=== PATIENT | female | born 1960 | race Caucasian/White ===

== ENCOUNTER → 2017-05-15 08:59 | Outpatient (CLI) | payer BC, SELFPAY ==
[2017-05-02 13:18] VITALS: BP 116/6; BMI 49.7
[2017-05-15 09:00] VITALS: PULSE 117; PULSE 120; PULSE 123; PULSE 124; PULSE 132; PULSE 133; PULSE 134; O2SAT 94; O2SAT 95; O2SAT 96; O2SAT 97; O2SAT 98
--- NOTE | 2017-05-15 14:41 | WT_ITS ---
PSN 6 Minute Walk Test - 6 Minute Walk Test 6 Minute Walk Test: 6 Minute Walk Test PSN:6-Minute Walk Test Start: 05/15/17 09: 37 Freq: Status: Active Protocol: [id number] Document 05/15/17 09:00 EW (Rec: 05/15/17 09:51 EW [id number]) 6 Minute Walk Test Date Performed 05/15/17 Time Performed 09:00 Height 5 ft 4 in Weight: 136.985 kg Weight in Pounds 302.[address]: Mark Nunn Assistive device used: None Pre-test Oxygen Delivery Method Room Air Pulse Ox (%) 96 Pulse Rate (60-100 beats/min) 117 H Dyspnea Boone Scale (0-10) 2 Exertion Boone Scale (6-20) 7 1st minute Oxygen Delivery Method Room Air Pulse Ox (%) 98 Pulse Rate (60-100 beats/min) 117 H 2nd minute Oxygen Delivery Method Room Air Pulse Ox (%) 95 Pulse Rate (60-100 beats/min) 124 H Reported Symptoms Increased Work of Breathing 3rd minute Oxygen Delivery Method Room Air Pulse Ox (%) 97 Pulse Rate (60-100 beats/min) 133 H Reported Symptoms Increased Work of Breathing 4th minute Oxygen Delivery Method Room Air Pulse Ox (%) 96 Pulse Rate (60-100 beats/min) 123 H Reported Symptoms Increased Work of Breathing 5th minute Oxygen Delivery Method Room Air Pulse Ox (%) 94 Pulse Rate (60-100 beats/min) 132 H Reported Symptoms Increased Work of Breathing 6th minute Oxygen Delivery Method Room Air Pulse Ox (%) 96 Pulse Rate (60-100 beats/min) 134 H Reported Symptoms Increased Work of Breathing Post-test Oxygen Delivery Method Room Air Pulse Ox (%) 98 Pulse Rate (60-100 beats/min) 120 H Dyspnea Boone Scale (0-10) 5 Exertion Boone Scale (6-20) 12 Full Laps Walked 17 Partial Lap, Number of Tiles Walked 26 Total Distance Walked (ft) 1029 - Interpretation Interpretation: The patient was able to ambulate 1029 feet over the course of 6 minutes on room air with the assistance of 2 weeks. Patient experienced no significant desaturation, but did have tachycardia as high as 133 bpm indicating a cardiovascular versus deconditioning limitation to exercise tolerance. - Recommendations Recommendations: No supplemental oxygen is indicated at this time. Patient may benefit from cardiac evaluation versus initiation of an exercise program.
== END ==
PROVIDERS: Family Provider Nurse Practitioner; PCP Nurse Practitioner; Visit Provider Internal Medicine Critical Care Medicine
DX: R06.02 Shortness of breath (principal)
CPT/HCPCS: 94618

== ENCOUNTER → 2017-05-16 06:59 | Outpatient (CLI) | payer BC, SELFPAY ==
[2017-05-02 13:18] VITALS: BP 116/6; BMI 49.7
--- NOTE | 2017-05-16 15:50 | PFTCOMP ---
COMPLETE PULMONARY FUNCTION TEST INTERPRETATION Brief HPI: Patient is a 57 year old female, currently under the care Dr. Nunn, who presents to [facility] for complete pulmonary function tests secondary to diagnosis of dyspnea. Respiratory therapist reports good effort and reproducible results. Interpretation: Forced expiration spirometry shows no large airways obstructive ventilatory defect with an FEV1 of 67 % predicted. There is no significant bronchodilator response by ATS criteria. Spirograms are of good quality and plateau normally. The respiratory flow volume loop shows a normal pattern. Lung volumes by body plethysmography show a decreased total lung capacity at 3.18 L, 63 % predicted. All other lung volumes are reduced symmetrically. Diffusion capacity by carbon monoxide is decreased at 51 % predicted. The airway resistance is normal. No previous pulmonary function tests were available for review. Impression: Irreversible moderate restrictive ventilatory defect with a symmetric reduction diffusing capacity consistent with possible interstitial lung disease.
== END ==
PROVIDERS: Family Provider Nurse Practitioner; PCP Nurse Practitioner; Visit Provider Internal Medicine Critical Care Medicine
DX: R06.02 Shortness of breath (principal)
CPT/HCPCS: 94060; 94726; 94729

== ENCOUNTER → 2017-09-23 20:06 | Outpatient (CLI) | payer BC, SELFPAY | PROVIDERS: Family Provider Nurse Practitioner; PCP Nurse Practitioner; Visit Provider Nurse Practitioner Acute Care | DX: G47.19 Other hypersomnia (principal) | CPT/HCPCS: 95810 ==

== ENCOUNTER → 2017-12-31 23:21 | Outpatient (CLI) | payer BC, SELFPAY | PROVIDERS: Family Provider Nurse Practitioner; PCP Nurse Practitioner; Visit Provider Internal Medicine Critical Care Medicine | DX: G47.33 Obstructive sleep apnea (adult) (pediatric) (principal) | CPT/HCPCS: 95811 ==

== ENCOUNTER → 2018-04-14 23:50 | Outpatient (CLI) | payer BC, SELFPAY ==
[2018-04-14 16:48] VITALS: BMI 53.1
[2018-04-15 00:43] LABS: Absolute Lymphocyte Count 2.92 X10^3/ul (0.83-4.51); Absolute Neutrophil Count 9.9 X10^3/uL (2.0-7.7); Basophil# 0.05 X10^3/uL; Basophil% 0.4 % (0-1); Eosinophils% 2.1 % (0-5); Hematocrit 39.9 % (37-47); Hemoglobin 12.6 g/dl (12.0-15.0); Lymphocyte # 2.92 X10^3/ul (4.0); Lymphocyte % 20.7 % (19-41); Mean Corp Hgb Conc 31.6 g/gl (32-36); Mean Corpuscular Hgb 28.6 pg (27.0-32.0); Mean Corpuscular Volume 90.5 fL (81-99); Mean Platelet Vol. 11.1 fl (6.2-12.0); Monocyte# 0.87 X10^3/uL; Monocyte% 6.2 % (0-10); Neutrophil # 9.93 X10^3/uL (2.7-7.7); Neutrophil % 70.4 % (47-70); Platelet Count 330 K/mm3 (150-450); RBC Distribution Width CV 13.8 % (11.6-14.6); RBC Distribution Width SD 44.6 fl (35.1-43.9); Red Blood Count 4.41 M/mm3 (4.2-5.4); White Blood Count 14.1 K/mm3 (4.4-11.0)
[2018-04-15 00:44] LABS: POSITIVE COUNT NO; POSITIVE DIFFERENTIAL NO; POSITIVE MORPHOLOGY NO
[2018-04-15 00:52] LABS: AST(SGOT) 18 U/L (15-37); Alanine Aminotransfer ALT/SGPT 34 U/L (13-56); Albumin, Serum 3.6 g/dL (3.2-5.0); Alkaline Phosphatase 56 U/L (45-117); Anion Gap 9 (5-15); BUN 11 mg/dL (7-18); BUN/Creat Ratio 13.1 RATIO (10-20); Calcium,Total 8.7 mg/dL (8.5-10.1); Chloride 105 mmol/L (98-107); Cholesterol 164 mg/dL (200); Creatinine, Serum 0.84 mg/dL (0.55-1.02); EST Glomerular Filtration Rate 74 mL/min (>60); Est Glom Filt Rate - Afr Amer 90 mL/min (>60); Globulin 3.6 g/dL (2.2-4.2); Glucose 194 mg/dL (74-106); High Density Lipoprotein 35 mg/dL; Potassium 4.1 mmol/L (3.5-5.1); Protein, Total 7.2 g/dL (6.4-8.2); Sodium Level 139 mmol/L (136-145); Triglycerides 132 mg/dL; Very Low Density Lipoprotein 26 mg/dL (5-40)
--- OUTSIDE RECORDS SUMMARY | 2018-06-17 05:50 | XMS RPT_ITS ---
:1960 Author Organization [place] Support Name Relationship Address Phone [facility] Unavailable [address] + [place] [address] KAUF, SRIDHAR Unavailable [id number] + [place] [address] [facility] Unavailable [address] + [place] [address] KAUF, SRIDHAR Unavailable [id number] + [place] [address] [facility] Unavailable [address] + [place] [address] KAUF, SRIDHAR Unavailable [address] + [place] [address] [facility] Unavailable [address] + [place] [address] KAUF, SRIDHAR Unavailable [id number] + [place] [address] [facility] Unavailable [address] + [place] [address] KAUF, SRIDHAR Unavailable [address] + [place] [address] [facility] Unavailable [address] + [place] [address] KAUF, SRIDHAR Unavailable [address] + [place] [address] [facility] Unavailable [address] + [place] [address] KAUF, SRIDHAR Unavailable [address] + [place] [address] [facility] Unavailable [address] + [place] [address] KAUF, SRIDHAR Unavailable [address] + [place] [address] [facility] Unavailable / + [place] / KAUF, SRIDHAR Unavailable [address] + [place] [address] [facility] Unavailable [address] + [place] [address] KAUF, SRIDHAR Unavailable [address] + [place] [address] [facility] Unavailable / + [facility] / KAUF, SRIDHAR Unavailable [address] + [place] [address] Kauf, Sridhar Unavailable Unavailable + Kauf, Sridhar Unavailable Unavailable + Care Team Providers Name Role Phone JOHNSON SOARES Attending Unavailable Smith, Brittney Attending Unavailable PROVIDER, UNKNOWN Referring Unavailable Smith, Brittney Primary Care Unavailable Smith, Brittney Attending Unavailable PROVIDER, UNKNOWN Referring Unavailable Smith, Brittney Primary Care Unavailable Smith, Brittney CORE CUTTER-C Attending Unavailable Smith, Brittney CORE CUTTER-C Primary Care Unavailable Mark Nunn D.O. Attending Unavailable Smith, Brittney CORE CUTTER-C Referring Unavailable Mark Nunn D.O. Attending Unavailable Smith, Brittney CORE CUTTER-C Primary Care Unavailable Mark Nunn D.O. Attending Unavailable Mark Nnun D.O. Referring Unavailable Smith, Brittney CORE CUTTER-C Primary Care Unavailable Princess Armstrong Attending Unavailable Smith, Brittney CORE CUTTER-C Referring Unavailable Franklin Boudreaux Attending Unavailable Robin Knox.O. Referring Unavailable Franklin Boudreaux Attending Unavailable Robin Knox.Yazmin. Referring Unavailable Princess Armstrong Attending Unavailable Smith, Brittney CORE CUTTER-C Referring Unavailable Smith, Brittney CORE CUTTER-C Primary Care Unavailable Princess Armstrong Attending Unavailable Smith, Brittney CORE CUTTER-C Primary Care Unavailable Mark Nunn D.O. Attending Unavailable Smith, Brittney CORE CUTTER-C Referring Unavailable Mark Nunn D.O. Attending Unavailable Smith, Brittney CORE CUTTER-C Primary Care Unavailable PROBLEMS PROBLEMS DATE TYPE CONDITION / CODE ATTENDING STATUS SOURCE 01/07/2018 Unknown G47.33 - Mark Nunn, Active Cheryl Obstructive sleep [facility] apnea (adult) Hospital (pediatric) / Repository G47.33(ICD-10) 09/23/2017 Unknown G47.19 - Other Armstrong, Active [place] hypersomnia / [facility] G47.19(ICD-10) Hospital Repository 05/15/2017 Unknown R06.02 - Shortness Mark Nunn, Active Cheryl of breath / [facility] R06.02(ICD-10) Hospital Repository 05/01/2017 Admitting Solitary pulmonary Obed, Active [facility] Diagnosis nodule / Brittney System R91.1(ICD-10) Repository 05/01/2017 Admitting Interstitial Obed, Active [facility] Diagnosis pulmonary disease, Brittney System unspecified / Repository J84.9(ICD-10) 05/01/2017 Admitting Dyspnea, Obed, Active [facility] Diagnosis unspecified / Brittney System R06.00(ICD-10) Repository 04/21/2017 Active Strain of muscle, FANY, Active [place] fascia and tendon [facility] Other of lower back, [place] initial encounter Repository / S39.012A(ICD-10) PROCEDURES PROCEDURES No Procedure Records FoundRESULTS RESULTS CBC W/DIFF, AUTOMATED Collected: 04/14/2018 Status: F Source: [facility] 5:15 PM [facility] REPOSITORY TYPE CODE TESTS RESULT OUT OF RANGE REFERENCE UNITS LAB L100.1000 4.4-11.0 K/mm3 High WBC 14.1 LAB L100.1200 4.2-5.4 M/mm3 Normal RBC 4.41 LAB L100.1300 12.0-15.0 g/dl Normal HGB 12.6 LAB L100.1400 37-47 % Normal HCT 39.9 LAB L100.1500 81-99 fL Normal MCV 90.5 LAB L100.1600 27.0-32.0 pg Normal MCH 28.6 LAB L100.1700 32-36 g/gl Low MCHC 31.6 LAB L100.1810 11.6-14.6 % Normal RDW CV 13.8 LAB L100.1820 35.1-43.9 fl High RDW SD 44.6 LAB L100.1900 150-450 K/mm3 Normal PLT 330 LAB L100.2000 6.2-12.0 fl Normal MPV 11.1 LAB L100.2100 47-70 % High NEUT% 70.4 LAB L100.2200 19-41 % Normal LY% 20.7 LAB L100.2300 0-10 % Normal MONO% 6.2 LAB L100.2400 0-5 % Normal EO% 2.1 LAB L100.2500 0-1 % Normal BASO% 0.4 LAB L100.2550 0.0-0.9 % Normal IM GRAN % 0.200 Result Comment: IG% - Immature Granulocytes (promyelocytes, myelocytes and metamyelocytes) > 1% indicates that a LEFT SHIFT is Present. LAB L100.2620 2.0-7.7 X10 3/uL High Absolute Neut 9.9 LAB L100.2720 0.83-4.51 X10 3/ul Normal Absolute Lymph 2.92 Performed By: #### L100.0100 #### [facility] [address] [place], [place], [address] COMPREHENSIVE METABOLIC Collected: 04/14/2018 Status: F Source: [facility] 5:15 PM [facility] REPOSITORY TYPE CODE TESTS RESULT OUT OF RANGE REFERENCE UNITS LAB L501.0100 74-106 mg/dL High GLU 194 Result Comment: Fasting Glucose result greater than or equal to 126 mg/dL suggests DIABETES MELLITUS per A.D.A. criteria. Please note revised GLUCOSE reference range effective 2017. LAB L501.1000 7-18 mg/dL Normal BUN 11 LAB L501.1100 0.55-1.02 mg/dL Normal CREAT,SERUM 0.84 Result Comment: The validity of the calculated GFR AND GFRAA in patients over 70 years has not been determined. Clinical correlation is essential. LAB L501.1110 >60 mL/min Normal EST GFR 74 Result Comment: Non- GFR Calc LAB L501.1115 >60 mL/min Normal EST GFR - AA 90 Result Comment: GFR Calc LAB L501.1300 10-20 RATIO Normal BUN/CRE 13.1 LAB L501.1500 6.4-8.2 g/dL T Normal PROT 7.2 LAB L501.1800 3.2-5.0 g/dL Normal ALB 3.6 LAB L501.1950 2.2-4.2 g/dL Normal GLOB 3.6 LAB L501.2000 0.9-2.4 RATIO Normal A/G 1.0 LAB L501.2200 8.5-10.1 mg/dL CA Normal 8.7 LAB L501.4100 15-37 U/L Normal AST 18 LAB L501.4305 45-117 U/L Normal ALK P 56 LAB L501.4405 13-56 U/L Normal ALT 34 LAB L501.4600 0.20-1.00 mg/dL T Normal BILI 0.30 LAB L501.5300 136-145 mmol/L NA Normal 139 LAB L501.5600 3.5-5.1 mmol/L K Normal 4.1 LAB L501.5900 98-107 mmol/L CL Normal 105 LAB L501.6100 21.0-32.0 mmol/L Normal CO2 25.0 LAB L501.6200 5-15 Normal GAP 9 Performed By: #### L500.4050, L500.4100, L501.9520 #### [facility] [address] [place], [address] LIPID PROFILE Collected: 04/14/2018 Status: F Source: [place] 5:15 PM [facility] REPOSITORY TYPE CODE TESTS RESULT OUT OF RANGE REFERENCE UNITS LAB L501.4900 200 mg/dL Normal CHOL 164 Result Comment: <200 mg/dL Desirable 200-240 mg/dL Borderline >240 mg/dL High Risk LAB L501.5000 mg/dL Normal TRIG 132 Result Comment: The drugs N-Acetylcysteine and Metamizole may falsely depress this assay. Serum Triglycerides Reference Interval Normal <150 mg/dL Borderline high 150 - 199 mg/dL High 200 - 499 mg/dL Very High > or = 500 mg/dL LAB L501.6400 mg/dL Low HDL 35 Result Comment: The drugs N-Acetylcysteine and Metamizole may falsely depress this assay. Reference Range HDL <40 mg/dL Low HDL Cholesterol HDL >or= 60 mg/dL High HDL Cholesterol LAB L501.6500 0-130 mg/dL Normal LDL 103 LAB L501.6600 5-40 mg/dL Normal VLDL 26 Performed By: #### L500.4050, L500.4100, L501.9520 #### [facility] [address] [place], [address] THYROID STIM HORMONE Collected: 04/14/2018 Status: F Source: [facility] ([facility]) 5:15 PM [facility] REPOSITORY TYPE CODE TESTS RESULT OUT OF RANGE REFERENCE UNITS LAB L501.9520 0.358-3.74 uIU/mL Normal TSH 0.90 Performed By: #### L500.4050, L500.4100, L501.9520 #### Cheryl [facility] [address] [place], [address] OFFICE VISIT Observed: 04/14/2018 Status: F Source: [place] 5:12 PM [facility] REPOSITORY [facility] [address] [place] [address] OFFICE VISIT Date of Service: 04/14/18 MR#: [id number] Acct: [id number] Name: CHACHA BAIRD Rep #: [id number] : 1960 Provider: RUPINDER Smith Age/Sex: 58/F Location: [facility] Status: Signed Intake Vital Signs04/14/18 Height 5 ft 4 in 04/14/18 Weight: 310 lb 04/14/18 Body Mass Index (BMI) 53.1 Intake Visit Reasons: MED REFILLS FOR HTN AND DM TYPE 2 AND LABS Allergies ciprofloxacin Allergy (Severe, Verified 11/27/17 08:22) rash/itching codeine Allergy (Severe, Verified 11/27/17 08:22) rash/itching oscar Allergy (Severe, Uncoded 11/27/17 08:22) Rash Medications albuterol sulfate HFA 90 mcg/actuation aerosol inhaler 2 puff INHALATION Q4H PRN g 05/02/17 [History Confirmed 11/27/17] aspirin 81 mg tablet,delayed release 81 mg PO QDAY 05/02/17 [History Confirmed 11/27/17] ferrous sulfate 325 mg (65 mg iron) tablet 325 mg PO BID tab 05/02/17 [History Confirmed 11/27/17] multivitamin,ar-okiu-wwpjgzjw tablet 1 tab PO QDAY 05/02/17 [History Confirmed 11/27/17] levothyroxine 100 mcg tablet 150 mcg PO QDAY tab 06/03/17 [History Confirmed 11/27/17] fluticasone furoate 100 mcg/actuation blister powder for inhalation 1 inh INHALATION Q24H #3 device 06/18/17 [Rx Confirmed 11/27/17] nystatin 100,000 unit/mL oral suspension 5 ml MUCOUS MEMBRANE TID #250 ml 07/11/17 [Rx Confirmed 11/27/17] fluticasone 50 mcg/actuation nasal spray,suspension 2 spray INTRANASAL QDAY #3 device 03/13/18 [Rx] montelukast 10 mg tablet 10 mg PO QPM #90 tab 03/13/18 [Rx] lisinopril 10 mg tablet 10 mg PO QDAY #90 tab 04/14/18 [Rx Confirmed 04/14/18] metformin 1,000 mg tablet 1,000 mg PO BID #180 tab 04/14/18 [Rx Confirmed 04/14/18] metoprolol succinate ER 50 mg tablet,extended release 24 hr 50 mg PO ONCE #90 tab 04/14/18 [Rx Confirmed 04/14/18] pioglitazone 30 mg tablet 30 mg PO QDAY #90 tab 04/14/18 [Rx Confirmed 04/14/18] sitagliptin 100 mg tablet 100 mg PO QDAY #90 tab 04/14/18 [Rx Confirmed 04/14/18] PFSH Medical History Morbid obesity (Chronic) Interstitial lung disease (Chronic) Cough (Chronic) Hypoxemia (Chronic) Shortness of breath (Chronic) Tachycardia (Chronic) Psoriasis (Chronic) Hypertension (Chronic) Hypothyroidism (Chronic) Anemia (Chronic) Surgical History History of repair of rotator cuff (Resolved) History of bilateral knee arthroplasty (Resolved) Social History Smoking Status: Never smoker second hand exposure: No alcohol intake: current substance use type: does not use HPI HPI (General) HPI HPI: CHACHA BAIRD, is a 58 F who presents to the office today for medication refills. No concerns feeling well ROS Const Constitutional: No anorexia, body ache, chills, excessive sweating, fatigue, fever(s), frequent falls, headache(s), decreased energy, malaise, night sweats, snoring, weakness, weight change, sleep problems, abnormal sleep pattern, change in appetite or other Eyes Eyes: No blurry vision, change in vision, double vision, discharge, dry eyes, bulging eyes, floaters, visual disturbances, eye pain, light sensitivity, spots in vision, tunnel vision or other ENT ENT: No headache(s), abnormal hearing, ear pain, ear discharge, ear pressure, hearing loss, tinnitus, dizziness/vertigo, balance problems, nosebleed/epistaxis, nasal congestion, nasal obstruction, nose pain, sinus pressure, sinus pain, nasal discharge, post nasal drip, facial pain, dental pain, dry mouth, difficulty swallowing, bad breath, hoarseness, lip swelling, mouth lesions, mouth pain, neck pain, sore throat, tongue swelling, throat swelling or other Resp Respiratory: No snoring, cough, change in phlegm color, chest congestion, excessive phlegm production, hemoptysis, pain on inspiration, shortness of breath, pain with cough, stridor, wheezing or other Cardio Cardiology: No excessive sweating, chest pain at rest, chest pain with exertion, leg pain with exertion, shortness of breath, dyspnea on exertion, generalized swelling, irregular heart rhythm, lightheadedness, orthopnea, radiating jaw, neck or arm pain, fast heart rate, slow heart rate, palpitations or other Gastro GI: No other, No Difficulty Swallowing, No abdominal pain, No belching, No bloating, No change in bowel habits, No change in stool character, No coffee ground emesis, No constipation, No cramping, No diarrhea, No heartburn, No feeling full early, No excessive flatus, No incontinent of stools, No Vomiting blood/hematemesis, No Blood in stool, No loose stools, No Black,tarry stools, No nausea/dyspepsia, No pain with swallowing, No vomiting, No hemorrhoids, No rectal pain Genitourinary: No urinary frequency, difficulty urinating, burning urination, painful urination, urinary urgency or blood in urine Musc Musculoskeletal: No neck pain, abnormal walking, joint pain, back pain, deformity, joint swelling, limited range of motion, loss of height, muscle cramps, muscle weakness, decreased muscle mass, body aches, numbness, radiating pain into limb, stiffness, tingling or other Skin Skin: No acne, hair loss, change in hair, nail changes, boil, change in skin color, dry skin, redness, excessive hair growth, yellowing of the skin, lesions, itching, rash, skin pain, skin ulcer, sores, skin swelling, wounds or other Breast Breast: No other Neuro Neurology: No frequent falls, headache(s), weakness, visual disturbances, abnormal hearing, abnormal walking, numbness, tingling, abnormal movements, abnormal speech, behavioral changes, confusion, unsteady gait/balance, dizziness, lack of coordination, loss of vision, memory loss, restless legs, fainting, tremor(s) or other Psych Psychiatric: No abnormal sleep pattern, No change in appetite, No behavioral changes, No confusion, No memory loss, No lack of enjoyment, No anxiety, No depression, No difficulty concentrating, No hopelessness, No irritability, No mood swings, No panic attacks, No paranoia, No Thoughts of harming yourself/Others, No hallucinations, No other Endo Endo: No excessive sweating, No fatigue, No other Aller/Imm Allergy/Immunologic: No lip swelling, tongue swelling, throat swelling, wheezing or itchy eyes Exam Const Constitutional: Yes cooperative, Yes healthy appearing Nutritional Appearance: Yes obese and overweight Orientation: Yes alert, awake and oriented x3 Chest Chest palpation AND inspection: Yes normal inspection of the chest Resp Effort AND Inspection: No stridor Auscultation: Yes clear to auscultation bilaterally Cardio Palpitation: Yes normal PMI Rate: Yes regular rate Rhythm: Yes regular rhythm GI Inspection: Yes normal to inspection Auscultation: Yes normal bowel sounds Rectal Exam: No hemorrhoids Musc Cervical Spine: Yes cervical ROM normal Thoracic/Lumbar Spine: Yes thoracic and lumbar spine normal to inspection Skin General: no rashes or lesions noted Lesions: Yes no lesions Extrem General: Yes normal to inspection Neuro General: Yes alert and oriented x3 Motor: No weakness Psych Appearance: Positive grossly normal Mood: Positive congruent mood Affect: Positive normal affect Results POC A1C POC A1C 8.9 % Last Edit by NOEMY Dover on 04/14/18 17:01 Assessment AND Plan Problems 1. Morbid obesity E66.01 2. Essential hypertension I10 3. Acquired hypothyroidism E03.9 4. Type 2 diabetes mellitus without complication, without long-term current use of insulin E11.9 Patient Instructions Take the medications as prescribed Will call with the results of thelabs drawn today Watch the starches and carbs Orders Orders: Medications New: Coding Level of Care Code Off vis,est,level 3 Diagnoses Morbid obesity E66.01 Essential hypertension I10 Hypertension type: essential hypertension Acquired hypothyroidism E03.9 Hypothyroidism type: acquired Type 2 diabetes mellitus without complication, without long- term current use of insulin E11.9 Diabetes mellitus manager of school insulin use: without manager of school use Diabetes mellitus complication status: without complication 04/14/18 1712 <Electronically signed by Brittney SALGUERO> Date Brittney SALGUERO CC: PULMONARY VISIT REPORT Observed: 11/27/2017 Status: F Source: [place] 9:03 AM [facility] REPOSITORY [facility] [address] [place] [address] OFFICE VISIT Date of Service: 11/27/17 MR#: [id number] Acct: [id number] Name: CHACHA BAIRD Robin Rep #: [id number] : 1960 Provider: Mark Nunn D.O. Age/Sex: 57/F Location[facility] Status: Signed Assessment AND Plan 1. Asthma J45.909 Plan The patient's asthma had previously been under good control with the use of Arnuity and as needed albuterol. In the recent weeks, her seasonal allergic rhinitis symptoms have returned and she is now utilizing her rescue inhaler with increasing frequency. Therefore, I am going to start the patient on Flonase and Singulair in hopes of helping to alleviate her current allergic rhinitis symptoms. If this does not help alleviate her reliance on her short acting beta agonist, may need to consider an escalation in her maintenance inhaler regimen to a combination ICS/LABA. Patient will return to our office in 2-4 weeks for reassessment of her underlying symptoms. 2. Morbid obesity E66.01 Plan Weight loss through dietary modification and a graded exercise regimen is strongly encouraged. Plan Detail Other Medications New: fluticasone 50 mcg/actuation (Flonase Allergy Relief) adminis2 sprays Intranasal QDAY ter into each nostril Follow Up 2-4 Weeks with [facility] HPI HPI Comments Details: The patient is a 57-year-old female who presents to the clinic today for a routine scheduled follow-up office visit. If you recall, the patient initially presented to me for evaluation of bronchitis. She is a lifelong non-smoker, but did report secondhand smoke exposure. She has lived in [place] her entire life. She is currently employed working in an office setting. She does report the presence of seasonal allergies, worse in the spring and fall months. She does not have any pets in her home environment. Pulmonary function testing completed in April 2017 revealed evidence of an irreversible moderate restrictive ventilatory defect with a symmetric reduction in diffusing capacity. A 6 minute walk test also completed at that time revealed no significant exertional hypoxemia. It does appear that the patient had a plain film chest x-ray completed on April 17, which reportedly revealed coarse interstitial markings throughout the lungs. Therefore, a dedicated chest CT was obtained which revealed clear pulmonary parenchyma without consolidation or effusion. There was incidental note made of a 4 mm pulmonary nodule in the right middle lobe, which does not require additional follow-up imaging given her low risk status. The patient is currently being treated for underlying asthma with Arnuity as needed albuterol. Today, the patient reports that over the last several weeks her seasonal allergies have become an issue. She is now utilizing her Pro Air 2-3 times per day. She reports the presence of nasal congestion, postnasal drip, itchy/watery eyes and sneezing. She denies fevers, chills or night sweats. She has reported intermittent chest tightness and wheezing, which responds favorably to the use of her short acting beta agonist. She is not currently utilizing any eyqi-gpk-azyrwbl medications for her seasonal allergic rhinitis symptoms. Her weight has been stable. 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 Accompanied by: Self Is patient in pain?: No Allergies ciprofloxacin Allergy (Severe, Verified 11/27/17 08:22) rash/itching codeine Allergy (Severe, Verified 11/27/17 08:22) rash/itching oscar Allergy (Severe, Uncoded 11/27/17 08:22) Rash Medications albuterol sulfate HFA 90 mcg/actuation aerosol inhaler 2 puff INHALATION Q4H PRN g 05/02/17 [History Confirmed 11/27/17] aspirin 81 mg tablet,delayed release 81 mg PO QDAY 05/02/17 [History Confirmed 11/27/17] ferrous sulfate 325 mg (65 mg iron) tablet 325 mg PO BID tab 05/02/17 [History Confirmed 11/27/17] lisinopril 10 mg tablet 10 mg PO QDAY 05/02/17 [History Confirmed 11/27/17] metformin 1,000 mg tablet 1,000 mg PO BID 05/02/17 [History Confirmed 11/27/17] metoprolol succinate ER 50 mg tablet,extended release 24 hr 50 mg PO ONCE tab 05/02/17 [History Confirmed 11/27/17] multivitamin,ml-mdpl-frzfbqhk tablet 1 tab PO QDAY 05/02/17 [History Confirmed 11/27/17] pioglitazone 30 mg tablet 30 mg PO QDAY 05/02/17 [History Confirmed 11/27/17] sitagliptin 100 mg tablet 100 mg PO QDAY 05/02/17 [History Confirmed 11/27/17] levothyroxine 100 mcg tablet 150 mcg PO QDAY tab 06/03/17 [History Confirmed 11/27/17] fluticasone furoate 100 mcg/actuation blister powder for inhalation 1 inh INHALATION Q24H #3 device 06/18/17 [Rx Confirmed 11/27/17] nystatin 100,000 unit/mL oral suspension 5 ml MUCOUS MEMBRANE TID #250 ml 07/11/17 [Rx Confirmed 11/27/17] fluticasone 50 mcg/actuation nasal spray,suspension 2 spray INTRANASAL QDAY #1 device 11/27/17 [Rx Confirmed 11/27/17] montelukast 10 mg tablet 10 mg PO QPM #30 tab 11/27/17 [Rx Confirmed 11/27/17] [facility] Medical History Morbid obesity (Chronic) Interstitial lung disease (Chronic) Cough (Chronic) Hypoxemia (Chronic) Shortness of breath (Chronic) Tachycardia (Chronic) Psoriasis (Chronic) Hypertension (Chronic) Hypothyroidism (Chronic) Anemia (Chronic) Surgical History History of repair of rotator cuff (Resolved) History of bilateral knee arthroplasty (Resolved) Social History Smoking Status: Never smoker second hand exposure: No alcohol intake: current substance use type: does not use Review of Systems Const CONSTITUTIONAL: Positive seasonal allergies; negative anorexia, body ache, chills, daytime sleepiness, fever(s), night sweats, oral thrush, stops breathing during sleep, weight loss, sleeping in chair, fatigue, weight loss, weight gain, frequent colds, other, headache(s) or orthopnea EETM Ear Nose Throat Mouth: Positive hearing normal and post nasal drip; negative hard of hearing, hoarseness, dry mouth in morning, change in vision, itchy eyes, eye pain, swallowing Difficulty, ear pain, nose bleed, headache(s), mouth pain, nasal congestion, nasal discharge, sinus pain, sinus pressure, sore throat or other Cardio Cardiovascular: Negative chest pain, chest pain at rest, chest pain with activity, irregular heart rhythm, edema, shortness of breath when lying down, palpitations, murmur or other Resp Respiratory: Positive as per HPI, shortness of breath shortness of breath: Positive with activity, wheezing, cough cough: Positive productive color: Positive clear, chest tightness and inhalers; negative pain with cough, chest congestion, pain on inspiration, increase use of rescue inhalers, snoring, apnea or other Gastro Gastrointestional: Negative bloody stools, change in appetite, difficulty swallowing, reflux, hematemesis, melena stool, loose stool, constipation or other Genitourinary: Negative blood in urine, nocturia, pain with urination or other Musc Musculoskeletal: Negative body pain, back pain, neck pain or other Skin/Breast Skin/Breast: Negative dry skin, itching, rash, unusual bruising, breast lump or other Neuro Neurological: Negative restless legs, confusion, weakness or other Psych Psychocological: Negative abnormal sleep pattern, anxiety, thoughts of hurting self/others, hopelessness or other Lymph Lymphatic: Negative easy bleeding, easy bruising, swollen lymph nodes or other Exam Const Constitutional: Positive conversant, cooperative, in no acute respiratory distress, well developed, well nourished, good hygiene and obese Head Head: Positive normocephalic and atraumatic; negative cyanosis of lips/distal nose Eyes Eye: Positive clear conjunctiva; negative nystagmus or scleral abnormality Ears Ear: Positive hearing normal and external ears normal; negative hard of hearing Nose Nose: Positive external nose normal; negative epistaxis Mouth Mouth: Positive oral mucosae normal, posterior oropharynx is adequate and post nasal drip; negative no lesions Mallampati Score: II: Mallampati Score Neck Neck: Positive normal visual inspection and trachea midline; negative lymphadenopathy Chest Wall Chest: Positive symmetric chest movement Normal AP diameter. Resp lung sounds: Positive clear to auscultation and good air exchange; negative wheezes, rhonchi or rales Cardio Cardiac: Positive regular rate, regular rhythm, S1 normal and S2 normal; negative rub, gallop or murmur GI GI: Positive normal bowel sounds and obese Soft without distention Genitourinary: Positive deferred Musc Musculoskeletal: Positive steady gait Skin Pulmonary Skin Exam: Positive intact; negative lesion, ulcers, dermal atrophy or rash Pulses Pulse: Yes Pedal pulses present: Extremities Extremities: No clubbing, No cyanosis, No edema Neuro Neurologic: Yes conversant, Yes no focal neuro deficits, Yes cooperative Lymph Lymphatic: No lymphadenopathy Psych Appearance: Positive grossly normal Mental Status: Positive mental status grossly normal Mood: Positive congruent mood Affect: Positive normal affect Coding Level of Care Code Off vis,est,level 3 Diagnoses Asthma J45.909 Morbid obesity E66.01 11/27/17 0903 <Electronically signed by Mark Nunn DO> Date Mark Nunn DO Cosigner Signature: Date (if applicable) CC: RUPINDER Smith PULMONARY VISIT REPORT Observed: 06/03/2017 Status: F Source: [facility] [place] 12:21 PM [facility] REPOSITORY Pulmonary Medicine of [address] [place] [address] OFFICE VISIT Date of Service: 06/03/17 MR#: [id number] Acct: [id number] Name: CHACHA BAIRD Rep #: [id number] : 1960 Provider: Princess Armstrong Age/Sex: 57/F Location[facility] Status: Signed Assessment AND Plan 1. Interstitial lung disease J84.9 Status Chronic Plan Stable. Continue supportive measures. She has responded well to the initiation of an inhaled steroid. Continue current maintenance medication. Follow- up with Dr. Nunn in 3 months to ensure continued good response to therapy. 2. Shortness of breath R06.02 Status Chronic Plan Much improved. Continue Arnuity. Follow-up with Dr. Nunn in 3 months. 3. Obesity E66.9 Status Chronic Plan Lengthy discussion about the impact of deconditioning and obesity on ability to perform without shortness of breath. Patient has been encouraged to get a walking program. She has been instructed to respond to her bodies physical symptoms, if while walking she begins to experience chest pain or palpitation she has been advised to take a break. If she begins to have difficulty breathing, she has been advised to try to use her rescue inhaler, this does not improve she has been advised to take a break. She has been encouraged to begin slowly and gently and move forward as her body responds accordingly. Plan Detail Other Medications Refilled: fluticasone furoate 100 mcg/actuation (Arnuity Ellipta) administ1 inh Inhalation Q24H er at approximately the same time(s) each day Follow Up 3 Months (DMB) HPI 1 M FU: Chief Complaint: Dyspnea on exertion HPI Comments Details: This is a 57 year old pleasant f, currently under the care of Brittney Smith NP-, here today to review test results, and to follow-up on her dyspnea on exertion and. I personally reviewed the tests/images/tracings which showed: Complete Pulmonary Function test were preformed on May 16, 2017, and showed FVC of 65 % of predicted, FEV1 of 67 % of predicted, FEV1/FVC ratio of 80 %, TLC of 63 % of predicted, RV of 56 % of predicted, DLCO 51% of predicted. The test was interpreted to be consistent with irreversible moderate restrictive ventilatory defect, with asymmetric reduction in diffusing capacity. Pulmonary stress test was completed on May 15, 2017, and did not show a drop in saturation below 89%, which suggested a requirement no current the for supplemental oxygen on ambulation. She was able to ambulate 1025 or 6 minutes. She has not been seen in the ED or urgent care for any breathing problems since her last office visit. She has not required any antibiotics or prednisone for respiratory illnesses since her last office visit. She continues compliance with Arnuity daily. She rinses her mouth out after each use. She denies any medication side effects such as sore throat or thrush. She reports that since beginning the use of Arnuity she has decreased the frequency and using her rescue inhaler. Recently, she was using her rescue inhaler approximately 5- 6 times per day. Currently, she is using it 1 or maybe 2 times per day. She reports a significant improvement in his shortness of breath on exertion. She denies any shortness of breath during conversation or at rest. She denies any cough, chest tightness or wheezing. She denies any sputum production or hemoptysis. She has not experienced any fever, chills or body aches. See complete review of systems. Intake Vital Signs06/03/17 Body Mass Index (BMI) 49.7 06/03/17 Blood Pressure 116/6 06/03/17 Height 5 ft 4 in 06/03/17 Weight: 298 lb Intake Visit Reasons: 1 M FU Accompanied by: Self Allergies ciprofloxacin Allergy (Severe, Verified 06/03/17 08:10) rash/itching codeine Allergy (Severe, Verified 06/03/17 08:10) rash/itching oscar Allergy (Severe, Uncoded 06/03/17 08:10) Rash Medications albuterol sulfate HFA 90 mcg/actuation aerosol inhaler 2 puff INHALATION Q4H PRN g 05/02/17 [History Confirmed 06/03/17] aspirin 81 mg tablet,delayed release 81 mg PO QDAY 05/02/17 [History Confirmed 06/03/17] ferrous sulfate 325 mg (65 mg iron) tablet 325 mg PO BID tab 05/02/17 [History Confirmed 06/03/17] lisinopril 10 mg tablet 10 mg PO QDAY 05/02/17 [History Confirmed 06/03/17] metformin 1,000 mg tablet 1,000 mg PO BID 05/02/17 [History Confirmed 06/03/17] metoprolol succinate ER 50 mg tablet,extended release 24 hr 50 mg PO ONCE tab 05/02/17 [History Confirmed 06/03/17] multivitamin,ro-wuss-brtgdmps tablet 1 tab PO QDAY 05/02/17 [History Confirmed 06/03/17] pioglitazone 30 mg tablet 30 mg PO QDAY 05/02/17 [History Confirmed 06/03/17] sitagliptin 100 mg tablet 100 mg PO QDAY 05/02/17 [History Confirmed 06/03/17] fluticasone furoate 100 mcg/actuation blister powder for inhalation 1 inh INHALATION Q24H #3 device 06/03/17 [Rx Confirmed 06/03/17] levothyroxine 100 mcg tablet 150 mcg PO QDAY tab 06/03/17 [History Confirmed 06/03/17] [facility] Medical History Morbid obesity (Chronic) Interstitial lung disease (Chronic) Cough (Chronic) Hypoxemia (Chronic) Shortness of breath (Chronic) Tachycardia (Chronic) Psoriasis (Chronic) Hypertension (Chronic) Hypothyroidism (Chronic) Anemia (Chronic) Surgical History History of repair of rotator cuff (Resolved) History of bilateral knee arthroplasty (Resolved) Social History Smoking Status: Never smoker second hand exposure: No alcohol intake: current substance use type: does not use Review of Systems Const CONSTITUTIONAL: Positive fatigue; negative anorexia, body ache, chills, daytime sleepiness, fever(s), night sweats, oral thrush, stops breathing during sleep, weight loss, sleeping in chair, weight loss, weight gain, frequent colds, seasonal allergies, other, headache(s) or orthopnea EETM Ear Nose Throat Mouth: Positive hearing normal; negative hard of hearing, hoarseness, dry mouth in morning, change in vision, itchy eyes, eye pain, swallowing Difficulty, ear pain, nose bleed, headache(s), mouth pain, nasal congestion, nasal discharge, post nasal drip, sinus pain, sinus pressure, sore throat or other Cardio Cardiovascular: Negative chest pain, chest pain at rest, chest pain with activity, irregular heart rhythm, edema, shortness of breath when lying down, palpitations, murmur or other Resp Respiratory: Positive as per HPI, shortness of breath shortness of breath: Positive with activity and wheezing; negative pain with cough, chest congestion, cough, chest tightness, pain on inspiration, inhalers, increase use of rescue inhalers, snoring, apnea or other Gastro Gastrointestional: Negative bloody stools, change in appetite, difficulty swallowing, reflux, hematemesis, melena stool, loose stool, constipation or other Genitourinary: Negative blood in urine, nocturia, pain with urination or other Musc Musculoskeletal: Negative body pain, back pain, neck pain or other Skin/Breast Skin/Breast: Negative dry skin, itching, rash, unusual bruising, breast lump or other Neuro Neurological: Negative restless legs, confusion, weakness or other Psych Psychocological: Negative abnormal sleep pattern, anxiety, thoughts of hurting self/others, hopelessness or other Lymph Lymphatic: Negative easy bleeding, easy bruising, swollen lymph nodes or other Exam Const Constitutional: Positive conversant, cooperative, in no acute respiratory distress, healthy appearing, well developed, well nourished, good hygiene and obese Head Head: Positive normocephalic and atraumatic; negative cyanosis of lips/distal nose Eyes Eye: Positive clear conjunctiva and nystagmus; negative scleral abnormality Ears Ear: Positive hearing normal and external ears normal; negative hard of hearing Nose Nose: Positive external nose normal and no nasal discharge; negative epistaxis Mouth Mouth: Positive oral mucosae normal, no lesions, good dentition and crowded posterior oropharynx; negative post nasal drip, malodorous breath or oral thrush present Mallampati Score: III: Mallampati Score Neck Neck: Positive normal visual inspection, full ROM, trachea midline, thick neck and female neck greater than 37 cm (15 in); negative lymphadenopathy, JVD or tender Chest Wall Chest: Positive normal inspection of the chest and symmetric chest movement; negative increased A/P diameter Resp lung sounds: Positive clear to auscultation, good air exchange, normal expiratory time and normal respiratory effort; negative diminished, wheezes, rhonchi, rales, dullness to percussion or wheeze present on forced exhalation Cardio Cardiac: Positive regular rate, regular rhythm, S1 normal and S2 normal; negative murmur GI GI: Positive normal to inspection, normal bowel sounds and obese; negative distended Genitourinary: Positive deferred Musc Musculoskeletal: Positive steady gait and ROM normal; negative kyphosis or scoliosis Skin Pulmonary Skin Exam: Positive intact; negative rash, lesion, ulcers, erythema, scaly or dermal atrophy Pulses Pulse: Yes pulses normal x4 extremities Extremities Extremities: Yes capillary refill normal, No clubbing, No cyanosis, No edema, No stasis dermatitis Neuro Neurologic: Yes conversant, Yes no focal neuro deficits, Yes cooperative, Yes normal cognition, Yes normal coordination, Yes normal concentration, Yes understands questions Lymph Lymphatic: No lymphadenopathy, No tenderness, No cervical adenopathy, No axillary adenopathy Psych Appearance: Positive grossly normal, eye contact and well kempt Mental Status: Positive mental status grossly normal Mood: Positive congruent mood Affect: Positive normal affect Coding Level of Care Code Off vis,est,level 3 Diagnoses Interstitial lung disease J84.9 Shortness of breath R06.02 Obesity E66.9 06/03/17 1221 <Electronically signed by Princess MCKEONC> Date Princess Armstrong NP-C Cosigner Signature: Date (if applicable) CC: RUPINDER Smith PULMONARY FUNCTION Observed: 05/16/2017 Status: F Source: [facility] REPORT COMP 3:52 PM [facility] REPOSITORY [facility] Pulmonary Services/Neurology [address] [place] [address] MR#: [id number] Acct: [id number] Name: CHACHA BAIRD Rep #: [id number] : 1960 57 From: Franklin Boudreaux MD Referring Dr: Mark Nunn D.O. Status: REG CLI Ordering Dr: Date: Location: [facility] Sex: F C COMPLETE PULMONARY FUNCTION TEST INTERPRETATION Brief HPI: Patient is a 57 year old female, currently under the care Dr. Nunn, who presents to [facility] for complete pulmonary function tests secondary to diagnosis of dyspnea. Respiratory therapist reports good effort and reproducible results. Interpretation: Forced expiration spirometry shows no large airways obstructive ventilatory defect with an FEV1 of 67 % predicted. There is no significant bronchodilator response by ATS criteria. Spirograms are of good quality and plateau normally. The respiratory flow volume loop shows a normal pattern. Lung volumes by body plethysmography show a decreased total lung capacity at 3.18 L, 63 % predicted. All other lung volumes are reduced symmetrically. Diffusion capacity by carbon monoxide is decreased at 51 % predicted. The airway resistance is normal. No previous pulmonary function tests were available for review. Impression: Irreversible moderate restrictive ventilatory defect with a symmetric reduction diffusing capacity consistent with possible interstitial lung disease. 05/16/171551 <Electronically signed by Franklin Boudreaux MD> Date Franklin Boudreaux MD CC: RUPINDER Smith; Franklin Boudreaux MD; Mark Nunn D.O. Date Dictated: 05/16/171549 Date Transcribed: 05/16/171549 System Operation Superintendent: DMITRY Signed 6 MINUTE WALK TEST Observed: 05/15/2017 Status: F Source: [facility] 2:41 PM [facility] REPOSITORY [facility] Pulmonary Services/Neurology [address] [place], [place] [address] [address] MR#: [id number] Acct: [id number] Name: CHACHA BAIRD Rep #: [id number] : 1960 57 From: Franklin Boudreaux MD Referring Dr: Mark Nunn D.O. Date: Ordering Dr: Sex: F C Location: PSN PSN 6 Minute Walk Test - 6 Minute Walk Test 6 Minute Walk Test: 6 Minute Walk Test PSN:6-Minute Walk Test Start: 05/15/17 09:37 Freq: Status: Active Protocol: [id number] Document 05/15/17 09:00 EW (Rec: 05/15/17 09:51 EW [id number]) 6 Minute Walk Test Date Performed 05/15/17 Time Performed 09:00 Height 5 ft 4 in Weight: 136.985 kg Weight in Pounds 302.[address]: Mark Nunn Assistive device used: None Pre-test Oxygen Delivery Method Room Air Pulse Ox (%) 96 Pulse Rate (60-100 beats/min) 117 H Dyspnea Boone Scale (0-10) 2 Exertion Boone Scale (6-20) 7 1st minute Oxygen Delivery Method Room Air Pulse Ox (%) 98 Pulse Rate (60-100 beats/min) 117 H 2nd minute Oxygen Delivery Method Room Air Pulse Ox (%) 95 Pulse Rate (60-100 beats/min) 124 H Reported Symptoms Increased Work of Breathing 3rd minute Oxygen Delivery Method Room Air Pulse Ox (%) 97 Pulse Rate (60-100 beats/min) 133 H Reported Symptoms Increased Work of Breathing 4th minute Oxygen Delivery Method Room Air Pulse Ox (%) 96 Pulse Rate (60-100 beats/min) 123 H Reported Symptoms Increased Work of Breathing 5th minute Oxygen Delivery Method Room Air Pulse Ox (%) 94 Pulse Rate (60-100 beats/min) 132 H Reported Symptoms Increased Work of Breathing 6th minute Oxygen Delivery Method Room Air Pulse Ox (%) 96 Pulse Rate (60-100 beats/min) 134 H Reported Symptoms Increased Work of Breathing Post-test Oxygen Delivery Method Room Air Pulse Ox (%) 98 Pulse Rate (60-100 beats/min) 120 H Dyspnea Boone Scale (0-10) 5 Exertion Boone Scale (6-20) 12 Full Laps Walked 17 Partial Lap, Number of Tiles Walked 26 Total Distance Walked (ft) 1029 - Interpretation Interpretation: The patient was able to ambulate 1029 feet over the course of 6 minutes on room air with the assistance of 2 weeks. Patient experienced no significant desaturation, but did have tachycardia as high as 133 bpm indicating a cardiovascular versus deconditioning limitation to exercise tolerance. - Recommendations Recommendations: No supplemental oxygen is indicated at this time. Patient may benefit from cardiac evaluation versus initiation of an exercise program. 05/15/17 1441 <Electronically signed by Franklin Boudreaux MD> Date Franklin Boudreaux MD CC: Date Dictated: 05/15/17 1440 Date Transcribed: 05/15/171439 System Operation Superintendent: Franklin Boudreaux Signed PULMONARY VISIT REPORT Observed: 05/03/2017 Status: F Source: [facility] 7:32 AM [facility] REPOSITORY Pulmonary Medicine of [address] [place] [address] OFFICE VISIT Date of Service: 05/02/17 MR#: [id number] Acct: [id number] Name: CHACHA BAIRD Rep #: [id number] : 1960 Provider: Mark Nunn D.O. Age/Sex: 57/F [facility] Status: Signed Assessment AND Plan 1. Shortness of breath R06.02 Plan The patient's shortness of breath and cough, which is now improving in light of recently completing a prednisone taper, could certainly be related to underlying bronchospastic airway disease and/or a postviral cough syndrome which can last up to 6-8 weeks. Repeated administration of antibiotics in the future should be discouraged, unless culture data is obtained. We will plan to obtain baseline pulmonary function testing at this time. In addition, the patient will be provided with a sample of an inhaled corticosteroid to be used in conjunction with her as needed albuterol inhaler. She will follow-up with our nurse practitioner to assess her symptom response to therapy. If the patient remains symptomatic and her PFTs are largely unremarkable, would then need to reconsider repeating a surface echocardiogram. Orders Orders: 2. Morbid obesity E66.01 Plan Weight loss through dietary modification and a graded exercise regimen is strongly encouraged. 3. Pulmonary nodule R91.1 Plan The patient's recent CT chest revealed the incidental finding of a 4 mm pulmonary nodule. Per the Fleischner Society 2017 recommendations, the patient would be considered a low risk patient, for which no additional follow-up chest imaging would be warranted. Plan Detail Other Medications New: fluticasone furoate 100 mcg/actuation (Arnuity Ellipta) administ1 inh Inhalation Q24H er at approximately the same time(s) each day Follow Up 1 Month (CSM) HPI HPI Comments Details: The patient is a 57-year-old female who presents to the clinic today and referral for evaluation of shortness of breath and cough. 10 pages of outside medical records were personally reviewed at today's visit. The patient is currently being followed by Brittney Smith NP. The patient reports that her symptoms of shortness of breath and cough initially began in February when she was treated for bronchitis. Her dyspnea was primarily exertional in nature and her cough was initially productive, although has become far less productive now. The patient denies ever having been diagnosed with asthma in childhood. She has never undergone pulmonary function testing. She denies the presence of chest tightness or wheezing at the present time. Although the patient has been treated with 3 different antibiotic courses to date, no culture data was ever obtained. She was just recently on steroids and completed a taper several days ago. She also reports being started on Lasix by her primary provider, despite having no underlying heart failure, per the patient's account. He states that she recently saw her seal delivery vehicle officer (Dr. Resendez in [place]) who did an EKG and told her that she did not have any cardiac problems. She does report that it has been several years since she last had a surface echocardiogram completed. She is a lifelong non-smoker, but does report secondhand smoke exposure. She has lived in [place] her entire life. She is currently employed working in an office setting. She does report the presence of seasonal allergies, worse in the spring and fall months. She does not have any pets in her home environment. Patient is on an PING inhibitor but reports that medication has been in place for a number of years. She was previously provided with a Pro Air rescue inhaler, which she reports using several times daily. She does report some symptom relief with use of the aforementioned medication. She also reports that her dyspnea and cough related complaints have improved since completing a steroid taper. She denies fevers, chills or night sweats. Her weight has been stable. She reports no chest pain, dizziness or lightheadedness. It does appear that the patient had a plain film chest x-ray completed on April 17, which reportedly revealed coarse interstitial markings throughout the lungs. Therefore, a dedicated chest CT was obtained which revealed clear pulmonary parenchyma without consolidation or effusion. There was incidental note made of a 4 mm pulmonary nodule in the right middle lobe. Intake Vital Signs05/02/17 Height 5 ft 5 in 05/02/17 Weight: 299 lb Intake Visit Reasons: Shortness of breath Allergies ciprofloxacin Allergy (Severe, Verified 05/02/17 13:24) rash/itching codeine Allergy (Severe, Verified 05/02/17 13:24) rash/itching oscar Allergy (Severe, Uncoded 05/02/17 13:24) Rash Medications albuterol sulfate HFA 90 mcg/actuation aerosol inhaler 2 puff INHALATION Q4H PRN g 05/02/17 [History Confirmed 05/02/17] aspirin 81 mg tablet,delayed release 81 mg PO QDAY 05/02/17 [History Confirmed 05/02/17] ferrous sulfate 325 mg (65 mg iron) tablet 325 mg PO BID tab 05/02/17 [History Confirmed 05/02/17] fluticasone furoate 100 mcg/actuation blister powder for inhalation 1 inh INHALATION Q24H #1 device 05/02/17 [Rx Confirmed 05/02/17] levothyroxine 100 mcg tablet PO 05/02/17 [History Confirmed 05/02/17] lisinopril 10 mg tablet 10 mg PO QDAY 05/02/17 [History Confirmed 05/02/17] metformin 1,000 mg tablet 1,000 mg PO BID 05/02/17 [History Confirmed 05/02/17] metoprolol succinate ER 50 mg tablet,extended release 24 hr 50 mg PO ONCE tab 05/02/17 [History Confirmed 05/02/17] multivitamin,ku-xzbi-erzlrqda tablet 1 tab PO QDAY 05/02/17 [History Confirmed 05/02/17] pioglitazone 30 mg tablet 30 mg PO QDAY 05/02/17 [History Confirmed 05/02/17] sitagliptin 100 mg tablet 100 mg PO QDAY 05/02/17 [History Confirmed 05/02/17] [facility] Medical History Interstitial lung disease (Chronic) Cough (Chronic) Hypoxemia (Chronic) Shortness of breath (Chronic) Tachycardia (Chronic) Psoriasis (Chronic) Hypertension (Chronic) Hypothyroidism (Chronic) Anemia (Chronic) Surgical History History of repair of rotator cuff (Resolved) History of bilateral knee arthroplasty (Resolved) Social History Smoking Status: Never smoker second hand exposure: No alcohol intake: current substance use type: does not use Review of Systems Const CONSTITUTIONAL: Positive daytime sleepiness and weight loss; negative anorexia, body ache, chills, fever(s), night sweats, oral thrush, stops breathing during sleep, sleeping in chair, fatigue, weight loss, weight gain, frequent colds, seasonal allergies, other, headache(s) or orthopnea EETM Ear Nose Throat Mouth: Positive hearing normal; negative hard of hearing, hoarseness, dry mouth in morning, change in vision, itchy eyes, eye pain, swallowing Difficulty, ear pain, nose bleed, headache(s), mouth pain, nasal congestion, nasal discharge, post nasal drip, sinus pain, sinus pressure, sore throat or other Cardio Cardiovascular: Negative chest pain, chest pain at rest, chest pain with activity, irregular heart rhythm, edema, shortness of breath when lying down, palpitations, murmur or other Resp Respiratory: Positive as per HPI and cough cough: Positive productive color: Positive clear; negative shortness of breath, pain with cough, wheezing, chest congestion, chest tightness, pain on inspiration, inhalers, increase use of rescue inhalers, snoring, apnea or other Gastro Gastrointestional: Negative bloody stools, change in appetite, difficulty swallowing, reflux, hematemesis, melena stool, loose stool, constipation or other Genitourinary: Negative blood in urine, nocturia, pain with urination or other Musc Musculoskeletal: Negative body pain, back pain, neck pain or other Skin/Breast Skin/Breast: Negative dry skin, itching, rash, unusual bruising, breast lump or other Neuro Neurological: Negative restless legs, confusion, weakness or other Psych Psychocological: Negative abnormal sleep pattern, anxiety, thoughts of hurting self/others, hopelessness or other Lymph Lymphatic: Negative easy bleeding, easy bruising, swollen lymph nodes or other Exam Const Constitutional: Positive conversant, cooperative, in no acute respiratory distress, well developed, well nourished, good hygiene and obese Head Head: Positive normocephalic and atraumatic; negative cyanosis of lips/distal nose Eyes Eye: Positive clear conjunctiva; negative nystagmus or scleral abnormality Ears Ear: Positive hearing normal and external ears normal; negative hard of hearing Nose Nose: Positive external nose normal; negative epistaxis Mouth Mouth: Positive oral mucosae normal, no lesions and posterior oropharynx is adequate; negative post nasal drip or oral thrush present Mallampati Score: II: Mallampati Score Neck Neck: Positive normal visual inspection, trachea midline and thick neck; negative lymphadenopathy Chest Wall Chest: Positive symmetric chest movement Normal AP diameter. Resp lung sounds: Positive clear to auscultation and good air exchange; negative wheezes, rhonchi or rales Cardio Cardiac: Positive regular rate, regular rhythm, S1 normal and S2 normal; negative murmur, rub or gallop GI GI: Positive normal bowel sounds and obese Soft without distention Genitourinary: Positive deferred [facility] Musculoskeletal: Positive steady gait Skin Pulmonary Skin Exam: Positive intact; negative rash, lesion or ulcers Pulses Pulse: Yes Pedal pulses present: Extremities Extremities: No clubbing, No cyanosis, No edema Neuro Neurologic: Yes conversant, Yes no focal neuro deficits, Yes cooperative, Yes understands questions Lymph Lymphatic: No lymphadenopathy Psych Appearance: Positive grossly normal Mental Status: Positive mental status grossly normal Mood: Positive congruent mood Affect: Positive normal affect Coding Level of Care Code Off vis,new,level 4 Diagnoses Shortness of breath R06.02 Morbid obesity E66.01 Pulmonary nodule R91.1 05/03/17 0732 <Electronically signed by Mark Nunn DO> Date Mark Nunn DO Cosigner Signature: Date (if applicable) CC: RUPINDER Smith CT CHEST W/ CONTRAST Observed: 05/01/2017 Status: F Source: InSupply 11:00 AM SYSTEM REPOSITORY Patient Name: CHACHA BAIRD CT Exam Date/Time 05/01/2017 09:24:[address] Chest w/ Contrast Ordering Physician BALJINDER SMITH DORA L Accession Number [id number] CPT4 Codes 14995 (), Q9967 () Reason For Exam j84.9 Report CLINICAL HISTORY: Difficulty breathing. COMPARISON: None Technique: [address] images were obtained of the chest after the uneventful IV administration of 75 mL of Isovue-370. Images were reformatted in coronal and sagittal projections. FINDINGS: Lungs: There is a 4 mm nodule within the anterior right middle lobe (series 3 image number 137). There is mild pleural thickening posteriorly on the left. No areas of consolidation or effusion are identified. The tracheobronchial tree remains patent. Mediastinum: The heart is normal in size with no pericardial effusion. The aorta and pulmonary arteries are normal in caliber. There are no enlarged mediastinal, hilar, or axillary lymph nodes. Thyroid and Esophagus: Normal Visualized upper abdomen: No acute process Soft tissues and Osseous structures: The osseous structures are unremarkable. IMPRESSION: Lungs clear with no areas of consolidation or effusion. No acute intrathoracic disease process. 4 mm pulmonary nodule anterior right middle lobe. There are no prior studies for comparison. Per the 2017 Brandon criteria for incidentally discovered pulmonary nodules, if the patient is low risk, no additional followup is needed. If the patient is high risk, a followup CT in one year is an optional consideration. Report Dictated on Final Dictating Physician: MD FERNÁNDEZ YUN ROBERT Signed Date and Time: 05/01/2017 11:08 am Signed by: MD FERNÁNDEZ YUN ROBERT Transcribed Date and Time: 05/01/2017 11:09 ED NOTE Observed: 04/21/2017 Status: COMPLETED Source: [place] 5:55 AM [facility] OTHER CAMPUS REPOSITORY HNO ID: [id number] Author: Karol (Rn) ANETTE Vega Service: (none) Author Type: Registered Nurse Type: ED Notes Filed: 04/21/2017 5:56 AM Note Text: Reviewed discharge prescription and discharge instructions with patient and spouse. Patient verbalized understanding of all instructions. Resp even and unlabored. patient assisted to wheelchair and wheeled to spouses vehicle outside ED doors. Patient and spouse verbalized thanks for ED care. XR RIB/CHST 3V AP Observed: 04/21/2017 Status: F Source: [place] RIB/OBL/CHST L 4:59 AM [facility] OTHER [place] REPOSITORY * * *Final Report* * * DATE OF EXAM: Apr 21 2017 4:59AM MDX [id number] - XR RIB/CHST 3V AP RIB/OBL/CHST L / PROCEDURE REASON: Pain * * * * Physician Interpretation * * * * XR RIB/CHST 3V AP RIB/OBL/CHST L Indication: Pain FINDINGS: AP projection of the chest demonstrates a large body habitus. The cardiomediastinal silhouette appears anatomic. Negative for pulmonary consolidation, pleural effusion, or lung mass. Negative for pneumothorax Negative for subdiaphragmatic free air. Two projections of the left ribs demonstrate no acute fracture IMPRESSION: NO ACUTE ABNORMALITY IDENTIFIED System Operation Superintendent: MINE Transcribe Date/Time: Apr 21 2017 5:12A Dictated by : CHUCK BARRAZA MD This examination was interpreted and the report reviewed and electronically signed by: CHUCK BARRAZA MD on Apr 21 2017 5:15AM EST [id number] ED PROV NOTE Observed: 04/21/2017 Status: COMPLETED Source: [place] 4:30 AM [facility] OTHER CAMPUS REPOSITORY O ID: [id number] Author: Johnson Soares MD Service: (none) Author Type: Physician Type: ED Provider Notes Filed: 04/21/2017 5:21 AM Note Text: ED Provider Note Patient Name: Chacha Barid SERVICE DATE: 04/21/17 History Patient presents with: Back Pain Patient is a 57 year old female presenting with back pain. History provided by: Patient park interpreter used: No Back Pain Location: Thoracic spine Quality: Aching Radiates to: Does not radiate Pain severity: Mild Pain is: Same all the time Onset quality: Sudden Duration: 1 day Timing: Constant Progression: Unchanged Chronicity: New Context: not emotional stress, not falling, not jumping from heights, not lifting heavy objects, not MCA, not MVA, not occupational injury, not pedestrian accident, not physical stress, not recent illness, not recent injury and not twisting Relieved by: Nothing Worsened by: Nothing Ineffective treatments: None tried Associated symptoms: no abdominal pain, no abdominal swelling, no bladder incontinence, no bowel incontinence, no chest pain, no dysuria, no fever, no headaches, no leg pain, no numbness, no paresthesias, no pelvic pain, no perianal numbness, no tingling and no weakness Risk factors: obesity Risk factors: no hx of cancer, no hx of osteoporosis and no lack of exercise PAST MEDICAL HISTORY Diagnosis Date - Diabetes (HCC) - HTN (hypertension) - Hypothyroid - Obesity - Osteoarthritis - Restless leg PAST SURGICAL HISTORY Procedure Laterality Date - PAST SURGICAL HISTORY OF bilat knee arthroscopy No family history on file. Social History Social History Main Topics - Smoking status: Never Smoker - Smokeless tobacco: Never Used - Alcohol use No - Drug use: No - Sexual activity: Not Asked ALLERGIES Allergen Reactions - Azithromycin Itching - Codeine Hives, Itching - Nickel Itching, Swelling Review of Systems Constitutional: Negative. Negative for fever. HENT: Negative. Eyes: Negative. Respiratory: Negative. Cardiovascular: Negative. Negative for chest pain. Gastrointestinal: Negative. Negative for abdominal pain and bowel incontinence. Genitourinary: Negative. Negative for bladder incontinence, dysuria and pelvic pain. Musculoskeletal: Positive for back pain. Skin: Negative. Neurological: Negative. Negative for tingling, weakness, numbness, headaches and paresthesias. Psychiatric/Behavioral: Negative. Physical Exam BP 123/64 Pulse 102 Temp 98.6 Resp 20 Ht 5' 4 (1.63m) Wt 301 lb (136.5kg) SpO2 95% BMI 51.64 kg/(m2). Physical Exam Constitutional: She is oriented to person, place, and time. Vital signs are normal. She appears well-developed and well-nourished. She is active. HENT: Head: Normocephalic and atraumatic. Right Ear: External ear normal. Left Ear: External ear normal. Nose: Nose normal. Mouth/Throat: Oropharynx is clear and moist. Eyes: Conjunctivae, EOM and lids are normal. Pupils are equal, round, and reactive to light. Lids are everted and swept, no foreign bodies found. Neck: Trachea normal and normal range of motion. Neck supple. Cardiovascular: Normal rate, regular rhythm, normal heart sounds and intact distal pulses. Pulmonary/Chest: Effort normal and breath sounds normal. Abdominal: Soft. Bowel sounds are normal. Musculoskeletal: Normal range of motion. Neurological: She is alert and oriented to person, place, and time. She has normal strength and normal reflexes. No cranial nerve deficit or sensory deficit. She displays a negative Romberg sign. GCS eye subscore is 4. GCS verbal subscore is 5. GCS motor subscore is 6. Skin: Skin is warm and dry. Psychiatric: She has a normal mood and affect. Nursing note and vitals reviewed. Diagnostic Testing ED Labs Ordered and Reviewed - No data to display Procedures Medical Decision Making / ED Course ED Course No diagnosis found. Plan The Patient was DISCHARGED: Counseled patient regarding suspected diagnosis AND need for follow-up. Discharged home with verbal and written instructions. They were instructed to return as needed for persistent or worsening symptoms or any new concerns. Condition at time of disposition: stable SIGNATURE: Johnson Soares MD 57-year-old has had cyst nonproductive cough for the last few days in the last week actually she had a coughing spell felt a pop in the left lateral thoracic back since since had a lot of pain when she coughs no shortness of breath no fevers or chills no double vision or blurry vision no dysuria no frequency no urgency no double vision or blurry vision no numbness no tingling Physical exam Afebrile vital signs are stable Cardiac regular rate rhythm S1-S2 rubs murmurs gallops Pulmonary exam clear to auscultation no rales rhonchi or crackles Abdomen is soft nontender nondistended bowel sounds present no hepatosplenomegaly Lymphatics no adenopathy Chest no pain to palpation no crepitus or subcutaneous emphysema but she does have pain to palpation in the left lateral thoracic infraspinatus area. She can heel and toe walk does not look like any kind of cauda equina I suspect this may be more of a rib injury or rib contusion from coughing. Chest x-ray rib series is ordered X-rays negative for any acute findings Patient feels a little better after the Percocet sounds acute or muscular back strain or could be a contused or broken rib either way pain medicine and follow-up the primary care doctor Diagnostic impression is back strain Johnson Soares MD 04/21/17 0521 ED NOTE Observed: 04/21/2017 Status: COMPLETED Source: [place] 4:28 AM [facility] REPOSITORY HNO ID: [id number] Author: Karol Barone) ANETTE Vega Service: (none) Author Type: Registered Nurse Type: ED Notes Filed: 04/21/2017 4:28 AM Note Text: Dr. Soares at bedside to evaluate patient. ED NOTE Observed: 04/21/2017 Status: COMPLETED Source: [place] 4:27 AM [facility] REPOSITORY HNO ID: [id number] Author: Karol Barone) ANETTE Vega Service: (none) Author Type: Registered Nurse Type: ED Notes Filed: 04/21/2017 4:28 AM Note Text: Pt with severe pain to left upper back following coughing spell. Patient has had a cough for past week. Patient has been evaluated by PCP for pneumonia and CHF. ALLERGIES ALLERGIES DATE TYPE / CODE NAME / CODE REACTION SEVERITY SOURCE Drug codeine/[id number] Rash/Itching SV [place] 8 Allergy/856656197( 0(RXNORM) [facility] SNOMED CT) Hospital Repository Drug ciprofloxacin/F00 Rash/Itching SV [place] 8 Allergy/184150661( 1767902(RXNORM) [facility] Science[facility]) Hospital Repository Miscellaneous oscar Rash SV [place] 8 Allergy/345074826( Community SNOMED CT) Hospital Repository DRUG AZITHROMYCIN ITCHING [place] INGREDI/589325395( Clinic Other SNOMED CT) [place] Rep[facility] DRUG CODEINE HIVES [place] 3 INGREDI/477914322( Clinic Other SNOMED CT) [place] Rep[place] DRUG NICKEL ITCHING [place] INGREDI/242060799( Clinic Other SNOMED CT) [place] Rep[place] ENCOUNTERS ENCOUNTERS ADMIT/DISCHARGE ACCOUNT NUMBER ADMITTING ENCOUNTER LOCATION SOURCE CLASS 04/14/2018 [id number] Ambulatory [facility] ding:LABSPEC Repository 12/31/2017 [id number] Ambulatory [facility] ding:SL Repository 11/27/2017/11/28/19 [id number] Ambulatory B[place]: [place] 18 [facility] Repository 09/23/2017 [id number] Ambulatory [facility] ding:SL Repository 09/02/2017/09/03/19 [id number] Ambulatory BMSBuilding: [place] 18 [facility] Repository 06/03/2017/06/04/19 [id number] Ambulatory BMSBuilding: [place] 18 [facility] Repository 05/16/2017 [id number] Ambulatory [facility] ding:PSN Repository 05/16/2017 [id number] Ambulatory BMSBuilding: [facility] Repository 05/15/2017 [id number] Ambulatory [facility] ding:PSN Repository 05/15/2017 [id number] Ambulatory BMSBuilding: [facility] Repository 05/02/2017/05/02/19 [id number] [facility] [place] [facility]2017 [id number] Ambulatory [facility] Repository 05/01/2017 [id number] Ambulatory [facility] Repository 04/21/2017/04/21/19 [id number] Emergency [address] Other [place] Repository PAYERS PAYERS ENCOUNTER GUARANTOR PAYER SUBSCRIBER SOURCE 04/14/2018 SRIDHAR J Primary SRIDHAR J KAUFDOB: [place]yl [id number] Insurance:ANTHEMPolic [id number] y Number: [place], [place] [id number] Repository [address]Hfj: (330) carleen Date:2085-17-05CW [phone] () [address], [place] [address]GV: 04/14/2018 Secondary NOT GIVENUNK [place] Insurance:SELF PAY [facility]: Effective Repository Date:2018-04-14 12/31/2017 SRIDHAR J Primary SRIDHAR J KAUFDOB: [place] [id number] Insurance:ANTHEMPolic [id number] y Number: [place], [place] [id number] Repository [address]Jjk: (330) carleen Date:2849-62-05JY [phone] () [address], [place] [address]IJ: 12/31/2017 Secondary NOT GIVENUNK [place] Insurance:SELF PAY [facility] Number: Effective Repository Date:2017-12-17 11/27/2017 SRIDHAR J Primary SRIDHAR J KAUFDOB: [place] [id number] Insurance:ANTHEMPolic [id number] [facility] y Number: [place], [place] [id number] Repository [address]Edy: (330) carleen Date:6038-15-52VU [phone] () [address], [place] [address]WN: 11/27/2017 Secondary NOT GIVENUNK [place] Insurance:SELF PAY [facility] Number: Effective Repository Date:2017-11-20 09/23/2017 SRIDHAR J Primary SRIDHAR J KAUFDOB: [place]yl [id number] Insurance:ANTHEMPolic [id number] y Number: [place], [place] [id number] Repository [address]Vzt: (330) carleen Date:4188-21-16ZV [phone] () [address], [place] [address]KG: 09/23/2017 Secondary NOT GIVENUNK [place] Insurance:SELF PAY [facility] Number: Effective Repository Date:2017-09-12 09/02/2017 Sridhar Baird141 Primary Sridhar Jak BairdDOB: [place] Insurance:ANTHEMPolic [id number] Number: Hospital [address]Xoi: 330 [id number] Repository [phone] () carleen Date:4049-50-15FB [address] [place] [address]IS: 09/02/2017 Secondary NOT GIVENUNK [place] Insurance:SELF PAY [facility] Number: Effective Repository Date:2017-09-03 06/03/2017 Sridhar Baird141 Primary Sridhar J BrieDOB: [place] Insurance:ANTHEMPolic [id number] Number: Hospital [address]Kup: (330 [id number] Repository [phone] () carleen Date:4764-68-77OG [address], [place] [address]JQ: 06/03/2017 Secondary NOT GIVENUNK [place] Insurance:SELF PAY [facility] Number: Effective Repository Date:2017-05-02 05/16/2017 Sridhar Johnson Primary Sridhar Jak BairdDOB: [place] Insurance:ANTHEMPolic [id number] Number: Hospital [address]Jcc: (330 [id number] Repository [phone] () carleen Date:3472-63-26EV [address], [place] [address]BL: 05/16/2017 Secondary NOT GIVENUNK [place] Insurance:SELF PAY [facility] Number: Effective Repository Date:2017-05-02 05/16/2017 Sridhar Baird141 Primary Sridhar Jak BairdDOB: [place]yl [place] Insurance:ANTHEMPolic [id number] y Number: Hospital [id number]: (330 [id number] Repository [phone] (HP) carleen Date:5962-54-11UD [address], [place] [address]KT: 05/16/2017 Secondary NOT GIVENUNK [place] Insurance:SELF PAY [facility] Number: Effective Repository Date:2017-05-16 05/15/2017 Sridhar Baird141 Primary Sridhar J KorinaufDOB: [place]yl [place] Insurance:ANTHEMPolic [id number], [place] y Number: Hospital [address]Ahx: (330) [id number] Repository [phone] (HP) carleen Date:2421-65-54IZ [address], [place] [address]LN: 05/15/2017 Secondary NOT GIVENUNK [place] Insurance:SELF PAY [facility] Number: Effective Repository Date:2017-05-02 05/15/2017 Sridhar Jak BairdIcyi183 Primary Sridhar J KorinaufDOB: [place] Insurance:ANTHEMPolic [id number] Number: Hospital [address]Qyf: (330) [id number] Repository [phone] (HP) carleen Date:9528-73-95MI [address]BV, [place] [address]QX: 05/15/2017 Secondary NOT GIVENUNK [place] Insurance:SELF PAY [facility] Number: Effective Repository Date:2017-05-15 05/02/2017 Sridhar Jak Johnson Primary Sridhar J BrieDOB: Cheryl [place] Insurance:ANTHEMPolic [id number], [place] y Number: Hospital [address]Iqm: (330) [id number] Repository [phone] (HP) carleen Date:0007-22-86IG [address], [place] [address]ZG: 05/02/2017 Secondary NOT GIVENUNK [place] Insurance:SELF PAY [facility] Number: Effective Repository Date:2017-04-29 05/02/2017 Chacha Byers: Primary Chacha Byers: [employer] [id number] Insurance:[employer] [id number] Number: [id number]: (330) Effective Date: [phone] (HP) 05/01/2017 Chacha Byers: Primary Chacha LaurentB: [employer] [id number] Insurance:[employer] [id number] [facility] Number: [id number]: (330) Effective Date: [phone] (HP)
== END ==
PROVIDERS: Family Provider Nurse Practitioner; PCP Nurse Practitioner; Visit Provider Nurse Practitioner
DX: I10 Essential (primary) hypertension (principal); E03.9 Hypothyroidism, unspecified; E11.9 Type 2 diabetes mellitus without complications
CPT/HCPCS: 80053; 80061; 84443; 85025

== ENCOUNTER → 2018-07-02 22:03 | Outpatient (CLI) | payer BC, SELFPAY ==
[2018-04-14 16:48] VITALS: BMI 53.1
[2018-07-02 22:17] LABS: Absolute Lymphocyte Count 3.38 X10^3/ul (0.83-4.51); Absolute Neutrophil Count 10.6 X10^3/uL (2.0-7.7); Basophil# 0.04 X10^3/uL; Basophil% 0.3 % (0-1); Eosinophil# 0.39 X10^3/uL; Eosinophils% 2.5 % (0-5); Hematocrit 37.7 % (37-47); Hemoglobin 12.2 g/dl (12.0-15.0); Lymphocyte # 3.38 X10^3/ul (4.0); Mean Corp Hgb Conc 32.4 g/gl (32-36); Mean Corpuscular Hgb 28.2 pg (27.0-32.0); Mean Corpuscular Volume 87.3 fL (81-99); Mean Platelet Vol. 10.5 fl (6.2-12.0); Monocyte# 0.92 X10^3/uL; Neutrophil # 10.62 X10^3/uL (2.7-7.7); Neutrophil % 68.9 % (47-70); Platelet Count 346 K/mm3 (150-450); RBC Distribution Width CV 13.6 % (11.6-14.6); RBC Distribution Width SD 43.4 fl (35.1-43.9); Red Blood Count 4.32 M/mm3 (4.2-5.4); White Blood Count 15.4 K/mm3 (4.4-11.0)
[2018-07-02 22:18] LABS: POSITIVE COUNT NO; POSITIVE DIFFERENTIAL NO; POSITIVE MORPHOLOGY NO
== END ==
PROVIDERS: Family Provider Nurse Practitioner; PCP Nurse Practitioner; Referring Provider Nurse Practitioner; Visit Provider Nurse Practitioner
DX: E11.65 Type 2 diabetes mellitus with hyperglycemia (principal)
CPT/HCPCS: 85025

== ENCOUNTER → 2018-09-16 08:02 | Outpatient (CLI) | payer BC, SELFPAY ==
[2018-09-16 07:32] VITALS: BMI 49.6
[2018-09-16 08:37] LABS: Absolute Lymphocyte Count 2.69 X10^3/ul (0.83-4.51); Absolute Neutrophil Count 10.7 X10^3/uL (2.0-7.7); Basophil# 0.05 X10^3/uL; Basophil% 0.3 % (0-1); Eosinophil# 0.29 X10^3/uL; Hematocrit 40.6 % (37-47); Hemoglobin 13.3 g/dl (12.0-15.0); Lymphocyte # 2.69 X10^3/ul (4.0); Lymphocyte % 18.5 % (19-41); Mean Corp Hgb Conc 32.8 g/gl (32-36); Mean Corpuscular Hgb 28.8 pg (27.0-32.0); Mean Corpuscular Volume 87.9 fL (81-99); Mean Platelet Vol. 10.2 fl (6.2-12.0); Monocyte# 0.76 X10^3/uL; Monocyte% 5.2 % (0-10); Neutrophil # 10.73 X10^3/uL (2.7-7.7); Neutrophil % 73.8 % (47-70); Platelet Count 296 K/mm3 (150-450); RBC Distribution Width CV 13.5 % (11.6-14.6); RBC Distribution Width SD 43.3 fl (35.1-43.9); Red Blood Count 4.62 M/mm3 (4.2-5.4); White Blood Count 14.6 K/mm3 (4.4-11.0)
[2018-09-16 08:38] LABS: POSITIVE COUNT NO; POSITIVE DIFFERENTIAL NO; POSITIVE MORPHOLOGY NO
[2018-09-20 03:06] LABS: Alternaria tenuis <0.10 kU/L (Class 0); Ash, White <0.10 kU/L (Class 0); Aspergillus fumigatus <0.10 kU/L (Class 0); Bermuda Grass <0.10 kU/L (Class 0); Birch <0.10 kU/L (Class 0); Black Walnut <0.10 kU/L (Class 0); Cat Hair / Dander,Stand <0.10 kU/L (Class 0); Cedar, Mountain <0.10 kU/L (Class 0); Cladosporium herbarum <0.10 kU/L (Class 0); Cockroach, American <0.10 kU/L (Class 0); Cottonwood <0.10 kU/L (Class 0); D farinae Mite <0.10 kU/L (Class 0); D pteronyssinus <0.10 kU/L (Class 0); Dog Epithelia <0.10 kU/L (Class 0); Elm, American White <0.10 kU/L (Class 0); Immunoglobulin E 52 IU/mL (6-495); Maple/Box Elder <0.10 kU/L (Class 0); Mulberry, White <0.10 kU/L (Class 0); Oak, White <0.10 kU/L (Class 0); Pecan <0.10 kU/L (Class 0); Penicillium Notatum <0.10 kU/L (Class 0); Pigweed, Rough <0.10 kU/L (Class 0); Ragweed, Short/Common <0.10 kU/L (Class 0); Russian Thistle <0.10 kU/L (Class 0); Sheep Sorrel <0.10 kU/L (Class 0); Sycamore, American <0.10 kU/L (Class 0); Timothy Grass <0.10 kU/L (Class 0)
[2018-09-21 14:06] LABS: Immunoglobulin E 55 IU/mL (6-495); Mouse Urine <0.10 kU/L (Class 0)
== END ==
PROVIDERS: Family Provider Nurse Practitioner; PCP Nurse Practitioner; Referring Provider Internal Medicine Critical Care Medicine; Visit Provider Internal Medicine Critical Care Medicine
DX: J45.909 Unspecified asthma, uncomplicated (principal)
CPT/HCPCS: 36415; 82785; 85025; 86003

== ENCOUNTER → 2018-10-29 | Outpatient (CLI) | payer BC, SELFPAY ==
[2018-10-29 16:51] VITALS: BMI 47.7
== END | disposition home or self-care (01) ==
PROVIDERS: Family Provider Nurse Practitioner; PCP Nurse Practitioner; Referring Provider Nurse Practitioner; Visit Provider Nurse Practitioner
DX: E11.65 Type 2 diabetes mellitus with hyperglycemia (principal)

== ENCOUNTER → 2019-04-21 21:49 | Outpatient (CLI) | payer BC, SELFPAY ==
[2019-04-21 17:23] VITALS: BMI 42.7
[2019-04-21 21:58] LABS: Absolute Lymphocyte Count 4.29 X10^3/uL (0.83-4.51); Absolute Neutrophil Count 10.9 X10^3/uL (2.0-7.7); Basophil# 0.07 X10^3/uL; Basophil% 0.4 % (0-1); Eosinophil# 0.37 X10^3/uL; Eosinophils% 2.2 % (0-5); Hematocrit 43.8 % (37-47); Lymphocyte # 4.29 X10^3/ul (4.0); Mean Corpuscular Hgb 28.7 pg (27.0-32.0); Mean Corpuscular Volume 89.8 fL (81-99); Mean Platelet Vol. 11.1 fl (6.2-12.0); Monocyte# 0.77 X10^3/uL; Monocyte% 4.7 % (0-10); NRBC Flagged by Analyzer 0 % (0-5); Neutrophil # 10.92 X10^3/uL (2.7-7.7); Neutrophil % 66.2 % (47-70); Platelet Count 342 K/mm3 (150-450); RBC Distribution Width CV 13.2 % (11.6-14.6); RBC Distribution Width SD 42.8 fl (35.1-43.9); Red Blood Count 4.88 M/mm3 (4.2-5.4); White Blood Count 16.5 K/mm3 (4.4-11.0)
[2019-04-21 22:25] LABS: ALB/GLOB Ratio 1.1 RATIO (0.9-2.4); AST(SGOT) 21 U/L (15-37); Alanine Aminotransfer ALT/SGPT 55 U/L (13-56); Albumin, Serum 3.8 g/dL (3.2-5.0); Alkaline Phosphatase 61 U/L (45-117); Anion Gap 8 (5-15); BUN 11 mg/dL (7-18); BUN/Creat Ratio 13.7 RATIO (10-20); Calcium,Total 9.2 mg/dL (8.5-10.1); Chloride 104 mmol/L (98-107); Cholesterol 159 mg/dL (200); EST Glomerular Filtration Rate 78 mL/min (>60); Est Glom Filt Rate - Afr Amer 94 mL/min (>60); Globulin 3.6 g/dL (2.2-4.2); Glucose 181 mg/dL (74-106); High Density Lipoprotein 31 mg/dL; Protein, Total 7.4 g/dL (6.4-8.2); Sodium Level 137 mmol/L (136-145); Thyroid Stim Hormone (TSH) 0.78 uIU/mL (0.358-3.74); Triglycerides 153 mg/dL; Very Low Density Lipoprotein 31 mg/dL (5-40)
== END ==
PROVIDERS: PCP Nurse Practitioner; Referring Provider Nurse Practitioner; Visit Provider Nurse Practitioner
DX: I10 Essential (primary) hypertension (principal); E11.65 Type 2 diabetes mellitus with hyperglycemia; E03.9 Hypothyroidism, unspecified
CPT/HCPCS: 80053; 80061; 84443; 85025

== ENCOUNTER → 2020-04-14 22:02 | Outpatient (CLI) | payer BC, SELFPAY ==
[2020-04-14 17:53] VITALS: BMI 43.6
[2020-04-14 22:14] LABS: Absolute Lymphocyte Count 4.31 X10^3/uL (0.83-4.51); Absolute Neutrophil Count 8.6 X10^3/uL (2.0-7.7); Basophil# 0.07 X10^3/uL; Basophil% 0.5 % (0-1); Eosinophil# 0.24 X10^3/uL; Eosinophils% 1.7 % (0-5); Hematocrit 46.9 % (37-47); Hemoglobin 14.6 g/dL (12.0-15.0); Lymphocyte # 4.31 X10^3/ul (4.0); Lymphocyte % 30.9 % (19-41); Mean Corp Hgb Conc 31.1 g/dL (32-36); Mean Corpuscular Hgb 28.4 pg (27.0-32.0); Mean Corpuscular Volume 91.2 fL (81-99); Mean Platelet Vol. 10.6 fl (6.2-12.0); Monocyte# 0.74 X10^3/uL; Monocyte% 5.3 % (0-10); NRBC Flagged by Analyzer 0 % (0-5); Neutrophil # 8.56 X10^3/uL (2.7-7.7); Neutrophil % 61.2 % (47-70); Platelet Count 323 K/mm3 (150-450); RBC Distribution Width CV 13.4 % (11.6-14.6); RBC Distribution Width SD 45.2 fl (35.1-43.9); Red Blood Count 5.14 M/mm3 (4.2-5.4)
[2020-04-14 22:34] LABS: ALB/GLOB Ratio 1.1 RATIO (0.9-2.4); AST(SGOT) 20 U/L (15-37); Alanine Aminotransfer ALT/SGPT 44 U/L (13-56); Alkaline Phosphatase 69 U/L (45-117); Anion Gap 6 (5-15); BUN 16 mg/dL (7-18); BUN/Creat Ratio 18.1 RATIO (10-20); Calcium,Total 9.3 mg/dL (8.5-10.1); Chloride 107 mmol/L (98-107); Cholesterol 180 mg/dL (200); Creatinine, Serum 0.88 mg/dL (0.55-1.02); EST Glomerular Filtration Rate 69 mL/min (>60); Est Glom Filt Rate - Afr Amer 84 mL/min (>60); Globulin 3.5 g/dL (2.2-4.2); Glucose 140 mg/dL (74-106); High Density Lipoprotein 36 mg/dL; Potassium 4.3 mmol/L (3.5-5.1); Protein, Total 7.5 g/dL (6.4-8.2); Sodium Level 137 mmol/L (136-145); Thyroid Stim Hormone (TSH) 1.23 uIU/mL (0.358-3.74); Triglycerides 235 mg/dL; Very Low Density Lipoprotein 47 mg/dL (5-40)
[2020-04-14 22:43] LABS: Hemoglobin A1c 7.1 % (3.8-5.6)
== END ==
PROVIDERS: PCP Nurse Practitioner; Referring Provider Nurse Practitioner; Visit Provider Nurse Practitioner
DX: E11.65 Type 2 diabetes mellitus with hyperglycemia (principal); I10 Essential (primary) hypertension; E03.9 Hypothyroidism, unspecified
CPT/HCPCS: 80053; 80061; 83036; 84443; 85025